=== PATIENT | male | born 1975 | race Caucasian/White ===

== ENCOUNTER 2020-06-08 14:01 | Emergency (ER) | payer OTHER ==
[2020-06-08 14:30] LABS: HEMOGLOBIN 14.8 gm/dl (14.0-17.5); RED BLOOD COUNT 4.77 M/UL (4.20-5.50); WHITE BLOOD COUNT 12.6 K/UL (4.5-11.0)
[2020-06-08 14:50] LABS: BUN/CREATININE RATIO 21 (0-10)
[2020-06-08] MEDS ORDERED: HYDROCODON-ACE1 EAC4 PO ×2 (16:41)
== END 2020-06-08 17:00 | disposition home or self-care (01) ==
LOC: ER1 14:01
PROVIDERS: Family Medicine
DX: S02.91XA Unspecified fracture of skull, initial encounter for closed fracture (principal); S32.019A Unspecified fracture of first lumbar vertebra, initial encounter for closed fracture; F12.90 Cannabis use, unspecified, uncomplicated; I10 Essential (primary) hypertension; E11.65 Type 2 diabetes mellitus with hyperglycemia; Z86.73 Personal history of transient ischemic attack (TIA), and cerebral infarction without residual deficits; Z79.01 Long term (current) use of anticoagulants; Z23 Encounter for immunization; V86.59XA Driver of other special all-terrain or other off-road motor vehicle injured in nontraffic accident, initial encounter; Y92.410 Unspecified street and highway as the place of occurrence of the external cause
CPT/HCPCS: 70450; 72125; 72128; 72131; 80053; 82550; 82553; 83874; 84484; 85025; 90471; 90715; 93005; 99284